=== PATIENT | female | born 1950 | race Caucasian/White ===

== ENCOUNTER 2021-05-31 06:55 | Day surgery (SDC) | payer MEDICARE, BC ==
[~2021-05-31 06:55] MED LIST: Lactated Ringers 1,000 ML IV SCH; Sodium Chloride 0.9% 10 ML Syringe FLUSH PRN
[2021-05-31] MEDS ORDERED: Lidocaine 1% PF 2 ML SDV INJECT ONE (06:56)
[2021-05-31] MEDS ORDERED: Propofol 200 MG/20 ML SDV IV ONE (06:56)
[2021-05-31 07:40] VITALS: BP 142/85; PULSE 93
== END 2021-05-31 09:41 | disposition home or self-care (01) ==
LOC: FB.SDS 06:55
PROVIDERS: ATTEND Surgery
DX: Z12.11 Encounter for screening for malignant neoplasm of colon (principal); K52.9 Noninfective gastroenteritis and colitis, unspecified; E78.00 Pure hypercholesterolemia, unspecified; I10 Essential (primary) hypertension; E66.9 Obesity, unspecified; J45.909 Unspecified asthma, uncomplicated; Z88.5 Allergy status to narcotic agent; Z98.890 Other specified postprocedural states; Z79.899 Other long term (current) drug therapy
CPT/HCPCS: 00811-QZ; 88305; J2704; J7120

== ENCOUNTER 2022-06-05 07:57 | Day surgery (SDC) | payer MEDICARE, BC ==
[2022-06-05] MEDS ORDERED: fentaNYL 100 MCG/2 ML SDV IV ONE (07:58)
[2022-06-05] MEDS ORDERED: Midazolam 1 MG/ML 2 ML SDV IV ONE (07:58)
[2022-06-05] MEDS ORDERED: Lactated Ringers 1,000 ML IV PRN (08:00)
[2022-06-05] MEDS ORDERED: Sodium Chloride 0.9% 10 ML Syringe FLUSH PRN (08:00)
[2022-06-05] MEDS ORDERED: acetaZOLAMIDE 500 MG Cap.ER PO ONE (08:30)
[2022-06-05 10:24] VITALS: BP 127/65; PULSE 73
== END 2022-06-05 10:46 | disposition home or self-care (01) ==
LOC: FB.SDS 07:57
PROVIDERS: ATTEND Ophthalmology
DX: H26.9 Unspecified cataract (principal); J45.909 Unspecified asthma, uncomplicated; F32.A Depression, unspecified; E78.5 Hyperlipidemia, unspecified; I10 Essential (primary) hypertension; E66.9 Obesity, unspecified; Z79.899 Other long term (current) drug therapy; Z88.5 Allergy status to narcotic agent; Z91.018 Allergy to other foods; Z68.29 Body mass index [BMI] 29.0-29.9, adult
CPT/HCPCS: 00142; A9270-GY; J2250; J3010; J3490; V2632

== ENCOUNTER 2022-06-19 06:51 | Day surgery (SDC) | payer MEDICARE, BC ==
[~2022-06-19 06:51] MED LIST changes: +Lactated Ringers 1,000 ML IV PRN; -Lactated Ringers 1,000 ML IV SCH
[2022-06-19] MEDS ORDERED: fentaNYL 100 MCG/2 ML SDV IV ONE (06:52)
[2022-06-19] MEDS ORDERED: Midazolam 1 MG/ML 2 ML SDV IV ONE (06:52)
[2022-06-19] MEDS ORDERED: Sodium Chloride 0.9% 10 ML Syringe IV ONE (06:52)
[2022-06-19] MEDS ORDERED: Labetalol 100 MG/20 ML MDV IV ONE (06:52)
[2022-06-19] MEDS ORDERED: acetaZOLAMIDE 500 MG Cap.ER PO ONE (09:00)
[2022-06-19 14:36] VITALS: BP 138/75; PULSE 64
== END 2022-06-19 09:53 | disposition home or self-care (01) ==
LOC: FB.SDS 06:51
PROVIDERS: ATTEND Ophthalmology
DX: H26.9 Unspecified cataract (principal); I10 Essential (primary) hypertension; Z88.2 Allergy status to sulfonamides; Z91.018 Allergy to other foods; J45.909 Unspecified asthma, uncomplicated; K21.9 Gastro-esophageal reflux disease without esophagitis; E78.5 Hyperlipidemia, unspecified; E66.9 Obesity, unspecified; Z90.49 Acquired absence of other specified parts of digestive tract; Z90.89 Acquired absence of other organs; Z68.29 Body mass index [BMI] 29.0-29.9, adult
CPT/HCPCS: 00142; A9270-GY; J2250; J3010; J3490; V2632